=== PATIENT | male | born 1975 | race Hispanic/Latino ===

== ENCOUNTER 2017-11-12 10:20 | Emergency (ER) | payer BC ==
[2017-11-12 10:20] VITALS: BMI 24.3
[2017-11-12 10:55] VITALS: RESP 18; TEMP 98.1
--- NOTE | 2017-11-12 10:58 | ED PDOC ---
Arrival/HPI - General Chief Complaint: Groin Pain Time Seen by Provider: 11/12/17 10:52 Historian: Patient - History of Present Illness Narrative History of Present Illness (Text): 11/12/17 10:52 This 42 yo male with pmh diverticulitis, renal stone, IBS, anxiety, presents to this ED c/o cramping pain on his pubis, and proximal penis x END STAPLER. Patient stated pain started after masturbating. Denies sob, dysuria, hematuria, n/v, recta bleeding or abnormal gait. Patient denies other complains Father is at bedside Time/Duration: Other (see hpi) Context: Home Past Medical History - Provider Review Nursing Documentation Reviewed: Yes - Infectious Disease Hx of Infectious Diseases: None - Tetanus Immunization Tetanus Immunization: Unknown - Renal Hx Kidney Stones: Yes - Musculoskeletal/Rheumatological Hx Falls: No Hx Fractures: Yes (multiple nose fx's as a teenager) Other/Comment: right 5th finger fx, stitches to right hand cut while washing dishes - Gastrointestinal Hx Colitis: No Hx Crohn's Disease: No Hx Diverticulitis: Yes Hx Irritable Bowel: Yes (dirrhea and constipation) - Psychiatric Hx Anxiety: Yes Hx Substance Use: No (occasional pot) - Surgical History Other/Comment: Hernia repair umbilical with mesh - Anesthesia Hx Anesthesia: Yes Hx Anesthesia Reactions: No Hx Malignant Hyperthermia: No Family/Social History - Physician Review Nursing Documentation Reviewed: Yes Family/Social History: Other (noncontributory) Smoking Status: Light Smoker < 10 Cigarettes Daily Hx Alcohol Use: No (once a month) Hx Substance Use: No (occasional pot) Allergies/Home Meds Allergies/Adverse Reactions: Allergies No Known Allergies Allergy (Verified 06/26/15 11:32) Review of Systems - Review of Systems Constitutional: Normal. absent: Fatigue, Weight Change, Fevers Eyes: Normal ENT: Normal Respiratory: Normal. absent: SOB, Cough Cardiovascular: Normal. absent: Chest Pain, Palpitations Gastrointestinal: Normal. absent: Abdominal Pain, Nausea, Vomiting Genitourinary Male: Other (see hpi) Musculoskeletal: Normal Skin: Normal. absent: Rash Neurological: Normal. absent: Headache, Dizziness Endocrine: Normal Hemo/Lymphatic: Normal Psychiatric: Normal Physical Exam Vital Signs Temp Pulse Resp BP Pulse Ox 11/12/17 10:20 98.1 F 81 18 150/87 100 Temperature: Afebrile Blood Pressure: Normal Pulse: Regular Respiratory Rate: Normal Appearance: Positive for: Well-Appearing, Non-Toxic, Comfortable Pain Distress: None Mental Status: Positive for: Alert and Oriented X 3 - Systems Exam Head: Present: Atraumatic, Normocephalic Pupils: Present: PERRL Extroacular Muscles: Present: EOMI Conjunctiva: Present: Normal Mouth: Present: Moist Mucous Membranes Neck: Present: Normal Range of Motion Respiratory/Chest: Present: Clear to Auscultation, Good Air Exchange. No: Respiratory Distress, Accessory Muscle Use Cardiovascular: Present: Regular Rate and Rhythm, Normal S1, S2. No: Murmurs Abdomen: Present: Normal Bowel Sounds. No: Tenderness, Distention, Peritoneal Signs Genitourinary Male: Present: Normal External Genitalia, Circumcised Penis, Other (No testicular tenderness, swelling erythema, or groin tenderness. No rash). No: Lesions, Penile Discharge, Testicle Tenderness, Penile Swelling, Masses, Erythema, Hernias, Testicle Swelling Back: Present: Normal Inspection. No: CVA Tenderness Upper Extremity: Present: Normal Inspection. No: Cyanosis, Edema Lower Extremity: Present: Normal Inspection. No: Edema Neurological: Present: GCS=15, CN II-XII Intact, Speech Normal Skin: Present: Warm, Dry, Normal Color. No: Rashes Psychiatric: Present: Alert, Oriented x 3, Anxious. No: Depressed Mood, Suicidal Ideation, Homicidal Ideation, Delusional, Hallucinations, Intoxicated Medical Decision Making ED Course and Treatment: 11/12/17 12:19 I reviewed labs, ct scan result, UA with patient. Tests were unremarkable. Patient is concern about side effect from Klonopin. I recommended patient to follow up urologist in 1-2 days. I ordered Benadryl IVP due to pt concern of Klonopin reaction. Re-evaluation. Patient feels better. Discussed results and plan with patient who expresses understanding. All questions answered and there is agreement with the plan to discharge home with instructions. Patient stable for discharge. Return if symptoms persist or worsen. Re-evaluation Time: 12:21 Reassessment Condition: Re-examined, Improved - Lab Interpretations Lab Results: 11/12/17 11:15 11/12/17 11:15 Lab Results 11/12/17 11:15: Sodium 145, Potassium 4.0, Chloride 107, Carbon Dioxide 25, Anion Gap 17, BUN 15, Creatinine 0.9, Est GFR ( Amer) > 60, Est GFR (Non- Af Amer) > 60, Random Glucose 94, Calcium 10.2, Total Bilirubin 2.2 H, AST 21, ALT 38, Alkaline Phosphatase 83, Total Protein 7.1, Albumin 4.5, Globulin 2.5, Albumin/Globulin Ratio 1.8 11/12/17 11:15: Urine Color Colorless, Urine Appearance Clear, Urine pH 6.5, Ur Specific [place] <= 1.005, Urine Protein Negative, Urine Glucose (UA) Negative, Urine Ketones Negative, Urine Blood Negative, Urine Nitrate Negative, Urine Bilirubin Negative, Urine Urobilinogen 0.2, Ur Leukocyte Esterase Negative 11/12/17 11:15: WBC 8.1, RBC 5.05, Hgb 15.7, Hct 45.6, MCV 90.3, MCH 31.1, MCHC 34.4, RDW 12.4, Plt Count 229, MPV 10.4, Gran % 69.2 H, Lymph % (Auto) 24.4, [place] % (Auto) 5.7, Eos % (Auto) 0.6 L, Baso % (Auto) 0.1, Gran # 5.58, Lymph # ( Auto) 2.0, [place] # (Auto) 0.5, Eos # (Auto) 0.1, Baso # (Auto) 0.01 I have reviewed the lab results: Yes Interpretation: No clinic. lab abnormalty - RAD Interpretation Narrative RAD Interpretations (Text): 11/12/17 12:10 PROCEDURE: CT Abdomen and Pelvis without intravenous contrast HISTORY: left flank/pelvic pain COMPARISON: None. TECHNIQUE: Without contrast. Contrast Dose: Radiation dose: Total exam DLP = 318 mGy-cm. This CT exam was performed using one or more of the following dose reduction techniques: Automated exposure control, adjustment of the mA and/or kV according to patient size, and/or use of iterative reconstruction technique. FINDINGS: LOWER THORAX: Unremarkable. LIVER: Unremarkable. No gross lesion or ductal dilatation. GALLBLADDER AND BILE DUCTS: Unremarkable. PANCREAS: Unremarkable. No gross lesion or ductal dilatation. SPLEEN: Unremarkable. ADRENALS: Unremarkable. No mass. KIDNEYS AND URETERS: Unremarkable. No hydronephrosis. No solid mass. VASCULATURE: Unremarkable. No aortic aneurysm. BOWEL: Unremarkable. No obstruction. No gross mural thickening. Mild diverticulosis of the sigmoid colon APPENDIX: Unremarkable. Normal appendix. PERITONEUM: Unremarkable. No free fluid. No free air. LYMPH NODES: Unremarkable. No enlarged lymph nodes. BLADDER: Unremarkable. REPRODUCTIVE: Unremarkable. BONES: No acute fracture. OTHER FINDINGS: None. IMPRESSION: No acute findings Radiology Orders: 11/12/17 11:00 ABD & PELVIS W/O PO OR IV CONT [CT] Stat Disposition/Present on Arrival - Present on Arrival Any Indicators Present on Arrival: No History of DVT/PE: No History of Uncontrolled Diabetes: No Urinary Catheter: No History of Decub. Ulcer: No History Surgical Site Infection Following: None - Disposition Have Diagnosis and Disposition been Completed?: Yes Diagnosis: Cramping of left suprapubic region Disposition: HOME/ ROUTINE Disposition Time: 12:22 Patient Plan: Discharge Patient Problems: Current Active Problems Problem Status Onset Cramping of left suprapubic region Acute Condition: GOOD Discharge Instructions (ExitCare): Acute Pelvic Pain (DC) Additional Instructions: Call Dr. Gonzalez Urologist as scheduled by you. Take medication as instructed. Return to emergency if symptoms worsen. Review STD test with your doctor or urologist in 2-3 days. Prescriptions: Ibuprofen [Motrin] 400 mg PO Q8H PRN #20 tab PRN Reason: Pain, Severe (8-10) Referrals: Thiago Urrutia MD [Primary Care Provider] - Follow up with primary Herb Gonzalez MD [Staff Provider] - Follow up with primary Forms: [employer] (Greek), WORK NOTE
[2017-11-12] MEDS ORDERED: Iohexol 240 (50 ml) ONE (11:05)
[2017-11-12 11:31] LABS: BASO # 0.01 K/mm3 (0.0-2.0); BASO % 0.1 % (0.0-3.0); EOS # 0.1 (0.0-0.7); EOS % 0.6 % (1.5-5.0); GRAN # 5.58 (1.4-6.5); GRAN % 69.2 % (50.0-68.0); HEMOGLOBIN 15.7 g/dL (14.0-18.0); LYMPH % 24.4 % (22.0-35.0); MEAN CELL VOLUME 90.3 fl (80.0-105.0); MEAN CORPUSCULAR HEMOGLOBIN 31.1 pg (25.0-35.0); MEAN CORPUSCULAR HGB CONC 34.4 g/dl (31.0-37.0); MEAN PLATELET VOLUME 10.4 fl (7.0-11.0); MONO # 0.5 (0.1-0.6); MONO % 5.7 % (1.0-6.0); RBC 5.05 10^6/uL (3.5-6.1); RED CELL DISTRIBUTION WIDTH 12.4 % (11.5-14.5); WHITE BLOOD COUNT 8.1 10^3/ul (4.5-11.0)
[2017-11-12 11:32] LABS: PH,URINE 6.5 (4.7-8.0); URINE BILIRUBIN NEGATIVE (NEGATIVE); URINE BLOOD NEGATIVE (NEGATIVE); URINE GLUCOSE (UA) NEGATIVE (NEGATIVE); URINE LEUKOCYTE ESTERASE NEGATIVE Leu/uL (NEGATIVE); URINE NITRATE NEGATIVE (NEGATIVE); URINE PROTEIN NEGATIVE mg/dL (<30 mg/dL); URINE UROBILINOGEN 0.2 E.U./dL (<1 E.U./dL)
[2017-11-12 11:33] LABS: URINE APPEARANCE CLEAR (CLEAR); URINE COLOR COLORLESS (YELLOW)
[2017-11-12 11:40] LABS: ALB/GLOB RATIO 1.8 (1.1-1.8); ALBUMIN 4.5 g/dL (3.0-4.8); ALT/SGPT 38 U/L (7-56); AST/SGOT 21 U/L (17-59); BLOOD UREA NITROGEN 15 mg/dL (7-21); CALCIUM 10.2 mg/dL (8.4-10.5); GFR AFRICAN-AMERICAN > 60; GFR NON-AFRICAN AMERICAN > 60
--- NOTE | 2017-11-12 11:58 | CT ---
PROCEDURE: CT Abdomen and Pelvis without intravenous contrast HISTORY: left flank/pelvic pain COMPARISON: None. TECHNIQUE: Without contrast. Contrast Dose: Radiation dose: Total exam DLP = 318 mGy-cm. This CT exam was performed using one or more of the following dose reduction techniques: Automated exposure control, adjustment of the mA and/or kV according to patient size, and/or use of iterative reconstruction technique. FINDINGS: LOWER THORAX: Unremarkable. LIVER: Unremarkable. No gross lesion or ductal dilatation. GALLBLADDER AND BILE DUCTS: Unremarkable. PANCREAS: Unremarkable. No gross lesion or ductal dilatation. SPLEEN: Unremarkable. ADRENALS: Unremarkable. No mass. KIDNEYS AND URETERS: Unremarkable. No hydronephrosis. No solid mass. VASCULATURE: Unremarkable. No aortic aneurysm. BOWEL: Unremarkable. No obstruction. No gross mural thickening. Mild diverticulosis of the sigmoid colon APPENDIX: Unremarkable. Normal appendix. PERITONEUM: Unremarkable. No free fluid. No free air. LYMPH NODES: Unremarkable. No enlarged lymph nodes. BLADDER: Unremarkable. REPRODUCTIVE: Unremarkable. BONES: No acute fracture. OTHER FINDINGS: None. IMPRESSION: No acute findings
[2017-11-12] MEDS ORDERED: DiphenhydrAMINE 50 mg/ml Inj IVP STA (12:18)
[2017-11-12 12:19] VITALS: BP 126/78; PULSE 79; O2SAT 97
== END 2017-11-12 12:38 | disposition home or self-care (01) ==
LOC: ED 10:20
DX: R10.32 Left lower quadrant pain (principal); F17.210 Nicotine dependence, cigarettes, uncomplicated
CPT/HCPCS: 74176; 80053; 81003; 85025; 87491; 87591; 96374; 99283; J1200; Q9966

== ENCOUNTER 2018-09-08 22:45 | Emergency (ER) | payer BC ==
[2018-09-08 23:19] VITALS: BMI 23.6
--- NOTE | 2018-09-08 23:27 | ED PDOC ---
Arrival/HPI <Miles Fatima - Last Filed: 09/09/18 00:50> - General Historian: Patient - History of Present Illness Narrative History of Present Illness (Text): 09/08/18 23:53 43 y/o with PMHx of diverticulitis, nephrolithiasis, IBS, anxiety presents to ED with complaints of chest palpitations, chest tightness, "eye heaviness" with associated diaphoresis, without chest pain, radiation to arm/jaw for the past 1 hour, without alleviation or aggravation with anything in particular. Pt reports he hasn't had these symptoms before. He reports he feels very anxious currently and is shaking. He hasn't taken his klonopin this am that he takes regularly. He reports smoking "2 hits" of marijuana around 12 pm today. He reports he smokes marijuana regularly, and didn't smoke any new type today. He was started on rifaximin by his personal health coach at [facility] today d/t "overgrowth of colonic bacteria." He took morning and afternoon dosages today. He denies any other drugs or alcohol use today. He denies fevers, chills, headache, dizziness, chest pain, shortness of breath, nausea, vomiting, constipation, diarrhea, dysuria. Time/Duration: Prior to Arrival Symptom Onset: Gradual Symptom Course: Unchanged Quality: Tightness Severity Level: Mild Activities at Onset: Rest <Samantha Medina - Last Filed: 09/09/18 04:28> - General Chief Complaint: Dizziness/Lightheaded Past Medical History - Provider Review Nursing Documentation Reviewed: Yes - Infectious Disease Hx of Infectious Diseases: None - Tetanus Immunization Tetanus Immunization: Unknown - Renal Hx Kidney Stones: Yes - Musculoskeletal/Rheumatological Hx Falls: No Hx Fractures: Yes (multiple nose fx's as a teenager) Other/Comment: right 5th finger fx, stitches to right hand cut while washing dishes - Gastrointestinal Hx Colitis: No Hx Crohn's Disease: No Hx Diverticulitis: Yes Hx Irritable Bowel: Yes (diarrhea and constipation) - Psychiatric Hx Anxiety: Yes Hx Substance Use: No (occasional pot) - Surgical History Other/Comment: Hernia repair umbilical with mesh - Anesthesia Hx Anesthesia: Yes Hx Anesthesia Reactions: No Hx Malignant Hyperthermia: No <Samantha Medina - Last Filed: 09/09/18 04:28> Family/Social History - Physician Review Nursing Documentation Reviewed: Yes Family/Social History: Hypertension, CAD/[place] Smoking Status: Light Smoker < 10 Cigarettes Daily Hx Alcohol Use: No (once a month) Hx Substance Use: Yes (occasional marijuana) <Samantha Medina - Last Filed: 09/09/18 04:28> Allergies/Home Meds <Miles Fatima - Last Filed: 09/09/18 00:50> <Samantha Medina - Last Filed: 09/09/18 04:28> Allergies/Adverse Reactions: Allergies No Known Allergies Allergy (Verified 09/08/18 23:21) Review of Systems - Review of Systems Constitutional: Other (sweating) Eyes: Other ("eye heaviness") ENT: Normal Respiratory: Normal. absent: SOB Cardiovascular: Palpitations Gastrointestinal: Normal Genitourinary Male: Normal Musculoskeletal: Normal Skin: Normal Neurological: Normal Endocrine: Diaphoresis Hemo/Lymphatic: Normal Psychiatric: Anxiety <Samantha Medina - Last Filed: 09/09/18 04:28> Physical Exam Vital Signs Reviewed: Yes Temperature: Afebrile Blood Pressure: Normal Pulse: Regular Respiratory Rate: Normal Appearance: Positive for: Well-Appearing, Comfortable, Other (anxious) Pain Distress: None Mental Status: Positive for: Alert and Oriented X 3 - Systems Exam Head: Present: Atraumatic, Normocephalic Pupils: Present: PERRL Extroacular Muscles: Present: EOMI Conjunctiva: Present: Normal Mouth: Present: Moist Mucous Membranes Neck: Present: Normal Range of Motion Respiratory/Chest: Present: Clear to Auscultation, Good Air Exchange. No: Respiratory Distress, Accessory Muscle Use Cardiovascular: Present: Regular Rate and Rhythm, Normal S1, S2. No: Murmurs Abdomen: No: Tenderness, Distention, Peritoneal Signs Back: Present: Normal Inspection Upper Extremity: Present: Normal Inspection. No: Cyanosis, Edema Lower Extremity: Present: Normal Inspection. No: Edema Neurological: Present: GCS=15, CN II-XII Intact, Speech Normal Skin: Present: Warm, Normal Color, Diaphoretic. No: Rashes Psychiatric: Present: Alert, Oriented x 3, Anxious <Samantha Medina - Last Filed: 09/09/18 04:28> Medical Decision Making ED Course and Treatment: Impression: Pt seen and evaluated with medical office receptionist. Aware and agree with HPI, clinical findings, plan, and management. Pt, whose past medical history includes diverticulitis, nephrolithiasis, IBS, and anxiety, presented for palpitations, chest pain, and diaphoresis tonight. Plan: -- Labs, troponin -- Urinalysis, urine drug screen -- Klonopin -- Reassess and disposition - Lab Interpretations Lab Results: 09/09/18 00:13 09/09/18 00:13 Lab Results 09/09/18 00:13: Sodium 141, Potassium 3.6, Chloride 107, Carbon Dioxide 24, Anion Gap 13, BUN 18, Creatinine 0.8, Est GFR ( Amer) > 60, Est GFR (Non- Af Amer) > 60, Random Glucose 136 H, Calcium 9.6, Phosphorus 3.2, Magnesium 1.9, Total Bilirubin 2.2 H, AST 25, ALT 30, Alkaline Phosphatase 79, Troponin I < 0.01, Total Protein 7.3, Albumin 4.6, Globulin 2.7, Albumin/Globulin Ratio 1.8 09/09/18 00:13: WBC 8.2, RBC 5.03, Hgb 15.5, Hct 44.4, MCV 88.3, MCH 30.8, MCHC 34.9, RDW 12.3, Plt Count 232, MPV 10.1, Gran % 62.4, Lymph % (Auto) 27.8, [place] % (Auto) 7.4 H, Eos % (Auto) 2.2, Baso % (Auto) 0.2, Gran # 5.11, Lymph # (Auto) 2.3, [place] # (Auto) 0.6, Eos # (Auto) 0.2, Baso # (Auto) 0.02 - RAD Interpretation Radiology Orders: 09/08/18 23:48 CHEST PORTABLE [RAD] Stat - Medication Orders Current Medication Orders: Discontinued Medications Clonazepam (Klonopin) 1 mg PO STAT STA; Protocol Stop: 09/08/18 23:58 Last Admin: 09/09/18 00:23 Dose: 1 mg <Miles Fatima - Last Filed: 09/09/18 00:50> ED Course and Treatment: 09/09/18 00:08 Impression: 43 y/o M with PMHx of anxiety, IBS, diverticulitis, nephrolithiasis presents to ED with complaints of chest palpitations, chest heaviness, anxiety with associated diaphoresis for the past 1 hour. Differential diagnosis includes but is not limited: anxiety induced chest palpitations acute [place] Plan: Labs EKG Chest xray U/A LIZ Sanchez Reassess & dispo Progress Notes: 09/09/18 04:13 Pt reassessed. Significant improvement in symptoms. No long anxious. Pt instructed to visit with personal health coach to discuss xifaxin medication side effects. - Lab Interpretations I have reviewed the lab results: Yes - RAD Interpretation Narrative RAD Interpretations (Text): 09/09/18 01:00 Chest xray: No acute findings Carding Supervisor: ED Physician - EKG Interpretation EKG Interpretation (Text): 09/08/18 23:26 Normal sinus rhythm Vent rate: 81 bpm QTc: 422ms Type: 12 lead EKG <Samantha Medina - Last Filed: 09/09/18 04:28> - PA / ELECTRONICS REPAIR TECHNICIAN / Resident Statement / has reviewed & agrees with the documentation as recorded. / has examined the patient and agrees with the treatment plan. <Samantha Medina - Last Filed: 09/09/18 04:28> Disposition/Present on Arrival <Miles Fatima - Last Filed: 09/09/18 00:50> - Present on Arrival Any Indicators Present on Arrival: No History of DVT/PE: No History of Uncontrolled Diabetes: No Urinary Catheter: No History of Decub. Ulcer: No History Surgical Site Infection Following: None - Disposition Have Diagnosis and Disposition been Completed?: Yes Disposition Time: 04:28 Patient Plan: Discharge <Samantha Medina - Last Filed: 09/09/18 04:28> - Disposition Diagnosis: Anxiety, Heart palpitations Disposition: HOME/ ROUTINE Condition: GOOD Additional Instructions: Please follow-up with your personal health coach within the next week. Please discuss the reaction you had recently had with you xifaxan medication. Please follow-up with your primary care doctor within the next week. Please discuss your visit to the ED with your doctor Please continue taking your current psychiatric medications as directed If your symptoms return, please visit the nearest emergency room Forms: [employer] (Serbian)
[2018-09-09 00:30] LABS: BASO # 0.02 K/mm3 (0.0-2.0); BASO % 0.2 % (0.0-3.0); EOS # 0.2 (0.0-0.7); EOS % 2.2 % (1.5-5.0); GRAN # 5.11 (1.4-6.5); GRAN % 62.4 % (50.0-68.0); HEMOGLOBIN 15.5 g/dL (14.0-18.0); LYMPH # 2.3 (1.2-3.4); LYMPH % 27.8 % (22.0-35.0); MEAN CELL VOLUME 88.3 fl (80.0-105.0); MEAN CORPUSCULAR HEMOGLOBIN 30.8 pg (25.0-35.0); MEAN CORPUSCULAR HGB CONC 34.9 g/dl (31.0-37.0); MEAN PLATELET VOLUME 10.1 fl (7.0-11.0); MONO # 0.6 (0.1-0.6); MONO % 7.4 % (1.0-6.0); RBC 5.03 10^6/uL (3.5-6.1); RED CELL DISTRIBUTION WIDTH 12.3 % (11.5-14.5); WHITE BLOOD COUNT 8.2 10^3/uL (4.5-11.0)
[2018-09-09 00:38] LABS: ALB/GLOB RATIO 1.8 (1.1-1.8); ALBUMIN 4.6 g/dL (3.0-4.8); ALT/SGPT 30 U/L (7-56); AST/SGOT 25 U/L (17-59); BLOOD UREA NITROGEN 18 mg/dL (7-21); CALCIUM 9.6 mg/dL (8.4-10.5); GFR NON-AFRICAN AMERICAN > 60
[2018-09-09 00:49] LABS: TROPONIN I < 0.01 ng/mL
[2018-09-09 01:16] VITALS: TEMP 98.1
[2018-09-09 03:49] LABS: URINE BILIRUBIN NEGATIVE (NEGATIVE); URINE BLOOD NEGATIVE (NEGATIVE); URINE GLUCOSE (UA) NEGATIVE (NEGATIVE); URINE LEUKOCYTE ESTERASE NEGATIVE Leu/uL (NEGATIVE); URINE PROTEIN NEGATIVE mg/dL (<30 mg/dL); URINE UROBILINOGEN 0.2 E.U./dL (<1 E.U./dL)
[2018-09-09 03:51] LABS: URINE APPEARANCE CLEAR (CLEAR); URINE COLOR STRAW (YELLOW)
[2018-09-09 04:27] VITALS: BP 119/81; PULSE 85; RESP 17; O2SAT 96
[2018-09-09 04:27] LABS: BARBITURATES, UR NEGATIVE (NEGATIVE); BENZODIAZEPINES, UR NEGATIVE (NEGATIVE); OPIATES, UR NEGATIVE (NEGATIVE); PHENCYCLIDINE, UR NEGATIVE (NEGATIVE)
--- NOTE | 2018-09-09 09:52 | RAD ---
Date of service: 09/08/2018 HISTORY: palpitations COMPARISON: No prior. FINDINGS: LUNGS: No active pulmonary disease. PLEURA: No significant pleural effusion identified, no pneumothorax apparent. CARDIOVASCULAR: No aortic atherosclerotic calcification present. Normal cardiac size. No pulmonary vascular congestion. OSSEOUS STRUCTURES: No significant abnormalities. VISUALIZED UPPER ABDOMEN: Normal. OTHER FINDINGS: None. IMPRESSION: No active disease.
--- NOTE | 2018-09-09 12:20 | CARD ---
APPROVED REPORT Date of service: 09/08/2018 EKG Measurement Heart [id number] <Conclusion> Normal sinus rhythm Normal ECG
== END 2018-09-09 04:27 | disposition home or self-care (01) ==
LOC: ED 22:45
DX: F41.9 Anxiety disorder, unspecified (principal); R00.2 Palpitations; F17.210 Nicotine dependence, cigarettes, uncomplicated
CPT/HCPCS: 71045; 80053; 81003; 83735; 84100; 84484; 85025; 93005; 99285; G0480

== ENCOUNTER 2018-10-03 08:34 | Outpatient (CLI) | payer BC | END 2018-10-03 08:35 | disposition home or self-care (01) | LOC: RAD 08:34 ==

== ENCOUNTER 2018-10-08 14:09 | Observation (INO) | payer BC ==
[2018-10-08 14:12] VITALS: BMI 22.8
--- NOTE | 2018-10-08 14:28 | ED PDOC ---
Arrival/HPI - General Chief Complaint: Chest Pain Time Seen by Provider: 10/08/18 14:16 Historian: Patient - History of Present Illness Narrative History of Present Illness (Text): 10/08/18 14:28 A 43 year old male, whose past medical history includes 2 hernia surgeries, tongue lesion, a nose surgery, depression, anxiety, gastritis, and acid reflux, presents to the emergency department complaining of chest tightness with assoc iated nausea since last night. Patient reports he was engaging in sexual intercourse last night when, at climax, he felt a sudden chest tightness, nausea, and shortness of breath that lasted for a few minutes. Patient states he woke up today with chest tightness and was concerned because of his anxiety. Patient admits he takes cialis for anxiety, cymbalta for depression, ambien, klonopin, and welchol for acid reflux. Patient notes he is currently experiencing chest tightness and nausea. Patient denies any fever, chills, diarrhea, vomiting, urinary symptoms, back pain, neck pain, headache, diz ziness, or any other complaints. PMD: Dr. Urrutia Time/Duration: Other (last night) Symptom Onset: Sudden Symptom Course: Unchanged Activities at Onset: Light Context: Home Past Medical History - Provider Review Nursing Documentation Reviewed: Yes - Infectious Disease Hx of Infectious Diseases: None - Tetanus Immunization Tetanus Immunization: Unknown - Renal Hx Kidney Stones: Yes - Musculoskeletal/Rheumatological Hx Falls: No Hx Fractures: Yes (multiple nose fx's as a teenager) Other/Comment: right 5th finger fx, stitches to right hand cut while washing dishes - Gastrointestinal Hx Colitis: No Hx Crohn's Disease: No Hx Diverticulitis: Yes Hx Irritable Bowel: Yes (diarrhea and constipation) - Psychiatric Hx Anxiety: Yes Hx Substance Use: Yes (occasional marijuana) - Surgical History Other/Comment: Hernia repair umbilical with mesh - Anesthesia Hx Anesthesia: Yes Hx Anesthesia Reactions: No Hx Malignant Hyperthermia: No Family/Social History - Physician Review Nursing Documentation Reviewed: Yes Family/Social History: No Known Family HX Smoking Status: Light Smoker < 10 Cigarettes Daily Hx Alcohol Use: No (once a month) Hx Substance Use: Yes (occasional marijuana) Allergies/Home Meds Allergies/Adverse Reactions: Allergies No Known Allergies Allergy (Verified 09/08/18 23:21) Home Medications: Home Meds Medication Instructions Recorded Confirmed Colesevelam HCl [Welchol] 625 mg PO BID 10/08/18 10/09/18 DULoxetine [Cymbalta] 1 tab PO DAILY 10/08/18 10/09/18 Ranitidine HCl [Zantac] 150 mg PO BID 10/08/18 10/09/18 Saccharomyces Boulardi [Florastor] 250 mg PO DAILY 10/08/18 10/09/18 Tadalafil [Cialis] 10 mg PO DAILY 10/08/18 10/08/18 Zolpidem [Ambien] 6.25 mg PO HS 10/08/18 10/09/18 clonazePAM [Klonopin] 0.5 mg PO HS PRN 10/08/18 10/09/18 Review of Systems - Physician Review All systems were reviewed & negative as marked: Yes - Review of Systems Constitutional: absent: Fevers, Other (chills) Respiratory: SOB Cardiovascular: Chest Pain (chest tightness) Gastrointestinal: Nausea. absent: Diarrhea, Vomiting Genitourinary Male: absent: Urinary Output Changes Musculoskeletal: absent: Back Pain, Neck Pain Neurological: absent: Headache, Dizziness Physical Exam Vital Signs Reviewed: Yes Vital Signs Temp Pulse Resp BP Pulse Ox 10/08/18 14:09 97.8 F 91 H 18 134/83 97 Temperature: Afebrile Blood Pressure: Normal Pulse: Tachycardic Respiratory Rate: Normal Appearance: Positive for: Well-Appearing, Non-Toxic Mental Status: Positive for: Alert and Oriented X 3 - Systems Exam Head: Present: Atraumatic, Normocephalic Pupils: Present: PERRL Extroacular Muscles: Present: EOMI Conjunctiva: Present: Normal Respiratory/Chest: Present: Clear to Auscultation, Good Air Exchange. No: Respiratory Distress, Accessory Muscle Use Cardiovascular: Present: Regular Rate and Rhythm, Normal S1, S2. No: Murmurs Abdomen: No: Tenderness, Distention, Peritoneal Signs Back: Present: Normal Inspection Upper Extremity: Present: Normal Inspection. No: Cyanosis, Edema Lower Extremity: Present: Normal Inspection. No: Edema Neurological: Present: GCS=15, CN II-XII Intact, Speech Normal Skin: Present: Warm, Dry, Normal Color. No: Rashes Psychiatric: Present: Alert, Oriented x 3, Normal Insight, Normal Concentration Medical Decision Making ED Course and Treatment: 10/08/18 14:32 Impression: 43 year old male presents to the emergency department complaining of chest tightness with associated nausea. Differential Diagnosis included but are not limited to: rule out CO Plan: -- EKG -- Labs -- CBC -- Chest X-ray -- Aspirin -- Urinalysis -- Reassess and disposition Prior Visits: Notes and results from previous visits were reviewed. Progress Notes: 10/08/18 14:34 EKG: Ordered, reviewed, and independently interpreted the EKG. Rate : 83 BPM Rhythm : NSR Interpretation : Normal intervals. 10/08/18 17:15 Patient will be admitted, and is aware and agrees with plan. accepts patient into service and requests for cardiology consult. 10/08/18 14:27 Chest X-ray reviewed by radiologist, IMPRESSION: No active disease. - Scribe Statement The provider has reviewed the documentation as recorded by the Yazanibmaik Christiansen All medical record entries made by the Scribe were at my direction and personally dictated by me. I have reviewed the chart and agree that the record accurately reflects my personal performance of the history, physical exam, medical decision making, and the department course for this patient. I have also personally directed, reviewed, and agree with the discharge instructions and disposition. Disposition/Present on Arrival - Present on Arrival Any Indicators Present on Arrival: No History of DVT/PE: No History of Uncontrolled Diabetes: No Urinary Catheter: No History of Decub. Ulcer: No History Surgical Site Infection Following: None - Disposition Have Diagnosis and Disposition been Completed?: Yes Diagnosis: Chest pain, Medication adverse effect Disposition: HOSPITALIZED Disposition Time: 17:19 Patient Plan: Observation Condition: GOOD
[2018-10-08 15:02] LABS: BASO # 0.01 K/mm3 (0.0-2.0); BASO % 0.1 % (0.0-3.0); EOS # 0.1 (0.0-0.7); EOS % 0.8 % (1.5-5.0); HEMOGLOBIN 15.6 g/dL (14.0-18.0); LYMPH # 2.2 (1.2-3.4); LYMPH % 30.8 % (22.0-35.0); MEAN CELL VOLUME 91.7 fl (80.0-105.0); MEAN CORPUSCULAR HGB CONC 33.8 g/dl (31.0-37.0); MEAN PLATELET VOLUME 9.6 fl (7.0-11.0); MONO # 0.4 (0.1-0.6); MONO % 5.4 % (1.0-6.0); RBC 5.03 10^6/uL (3.5-6.1); RED CELL DISTRIBUTION WIDTH 12.4 % (11.5-14.5); WHITE BLOOD COUNT 7.1 10^3/uL (4.5-11.0)
[2018-10-08 15:32] LABS: ALB/GLOB RATIO 1.6 (1.1-1.8); ALBUMIN 4.6 g/dL (3.0-4.8); ALT/SGPT 35 U/L (7-56); AST/SGOT 34 U/L (17-59); BLOOD UREA NITROGEN 20 mg/dL (7-21); CALCIUM 9.4 mg/dL (8.4-10.5); GFR NON-AFRICAN AMERICAN > 60
[2018-10-08 15:35] LABS: TROPONIN I < 0.01 ng/mL
[2018-10-08 16:34] LABS: PH,URINE 6.5 (4.7-8.0); URINE BILIRUBIN NEGATIVE (NEGATIVE); URINE BLOOD NEGATIVE (NEGATIVE); URINE GLUCOSE (UA) NEGATIVE (NEGATIVE); URINE LEUKOCYTE ESTERASE NEGATIVE Leu/uL (NEGATIVE); URINE PROTEIN NEGATIVE mg/dL (<30 mg/dL); URINE UROBILINOGEN 0.2 E.U./dL (<1 E.U./dL)
[2018-10-08 16:40] LABS: URINE APPEARANCE CLEAR (CLEAR); URINE COLOR YELLOW (YELLOW)
[2018-10-08] MEDS ORDERED: Sodium Chloride 0.9% 1,000 ML IV STA (17:13)
--- NOTE | 2018-10-08 18:02 | RAD ---
Date of service: 10/08/2018 HISTORY: chest tightness COMPARISON: Comparison is made to the previous study dated 09/08/2018 FINDINGS: LUNGS: No active pulmonary disease. PLEURA: No significant pleural effusion identified, no pneumothorax apparent. CARDIOVASCULAR: No aortic atherosclerotic calcification present. Normal cardiac size. No pulmonary vascular congestion. OSSEOUS STRUCTURES: No significant abnormalities. VISUALIZED UPPER ABDOMEN: Normal. OTHER FINDINGS: None. IMPRESSION: No active disease.
[2018-10-08 19:38] VITALS: RESP 20
[2018-10-08 20:06] VITALS: O2SAT 98
[2018-10-08] MEDS ORDERED: SACCHAROMYCES BOULARDII 250 MG PO SCH ×2 (21:09→21:31)
[2018-10-08] MEDS: RANITIDINE 150 MG PO SCH (21:48)
[2018-10-08] MEDS ORDERED: Pneumococcal 23-Valent Vaccine IM ONE (22:35)
[2018-10-08] MEDS ORDERED: Influenza Vaccine 60 mcg/0.5 mL SYR (4YR UP) IM ONE (22:35)
[2018-10-09 05:56] VITALS: TEMP 98.5
--- NOTE | 2018-10-09 07:02 | CP.PCM.HP ---
<Jenny Bernstein - Last Filed: 10/09/18 10:25> History of Present Illness - History of Present Illness History of Present Illness: 43yo male PMHx diverticulitis, nephrolithiasis, IBS, depression, anxiety, PUD, GERD, multiple nasal bone fractures presents to the ER complaining of chest tightness and nausea the night of admission. He reports she was engaging in sexual intercourse and at climax he felt a sudden chest tightness and was short of breath for some minutes. He denied radiation of the chest pain down his left arm or up his jaw and denied any diaphoresis/palpitations at the time of event. He reports he felt like it was a muscle spasm. Patient has anxiety for which he took Cialis prior to intercourse and was concerned it was related to his chest pain. he denied other complaints of fever, chills, headache, dizziness, cough, abd pain, nausea, vomiting, bowel/bladder complaints, pain/swelling in his legs bilaterally. 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 Urrutia Present on Admission - Present on Admission Any Indicators Present on Admission: No Review of Systems - Review of Systems All systems: reviewed and no additional remarkable complaints except Review of Systems: as per HPI Past Patient History - Infectious Disease Hx of Infectious Diseases: None - Tetanus Immunizations Tetanus Immunization: Unknown - Past Medical History & Family History Past Medical History?: Yes - Past Social History Smoking Status: Never Smoked - CARDIAC Hx Cardiac Disorders: No - PULMONARY Hx Respiratory Disorders: No - NEUROLOGICAL Hx Neurological Disorder: No - HEENT Hx HEENT Problems: No - RENAL Hx Chronic Kidney Disease: Yes Hx Kidney Stones: Yes - ENDOCRINE/METABOLIC Hx Endocrine Disorders: No - HEMATOLOGICAL/ONCOLOGICAL Hx Blood Disorders: No - INTEGUMENTARY Hx Dermatological Problems: No - MUSCULOSKELETAL/RHEUMATOLOGICAL Hx Falls: No - GASTROINTESTINAL Hx Gastrointestinal Disorders: Yes Hx Crohn's Disease: No Hx Diverticulitis: Yes Hx Gastroesophageal Reflux: Yes Other/Comment: ibs, gastritis, diarrhea, constipation, pt is being treated at [facility] for ibs "good bacteria is overgrown" pt stated - GENITOURINARY/GYNECOLOGICAL Hx Genitourinary Disorders: No - PSYCHIATRIC Hx Substance Use: Yes (occasional marijuana) - SURGICAL HISTORY Hx Surgeries: Yes Other/Comment: Hernia repair umbilical with mesh. left inguinal hernia sx, benign tongue lesion removed - ANESTHESIA Hx Anesthesia: Yes Hx Anesthesia Reactions: No Hx Malignant Hyperthermia: No Meds Allergies/Adverse Reactions: Allergies Allergy/AdvReac Type Severity Reaction Status Date / Time No Known Allergies Allergy Verified 09/08/18 23:21 Physical Exam - Constitutional Appears: Non-toxic, No Acute Distress - Head Exam Head Exam: ATRAUMATIC, NORMAL INSPECTION, NORMOCEPHALIC - Eye Exam Eye Exam: EOMI, Normal appearance, PERRL. absent: Conjunctival injection, Scleral icterus Pupil Exam: NORMAL ACCOMODATION, PERRL - ENT Exam ENT Exam: Mucous Membranes Moist - Neck Exam Neck exam: Positive for: Full Rom, Normal Inspection. Negative for: Lymphadenopathy - Respiratory Exam Respiratory Exam: Clear to Auscultation Bilateral, NORMAL BREATHING PATTERN. absent: Accessory Muscle Use, Rales, Rhonchi, Wheezes, Respiratory Distress - Cardiovascular Exam Cardiovascular Exam: REGULAR RHYTHM, RRR, +S1, +S2 - GI/Abdominal Exam GI & Abdominal Exam: Normal Bowel Sounds, Soft. absent: Firm, Guarding, Rigid, Tenderness - Extremities Exam Extremities exam: Positive for: normal capillary refill, normal inspection, pedal pulses present. Negative for: pedal edema - Back Exam Back exam: NORMAL INSPECTION. absent: rash noted - Neurological Exam Neurological exam: Alert, CN II-XII Intact, Oriented x3 - Psychiatric Exam Psychiatric exam: Anxious - Skin Skin Exam: Dry, Intact, Normal Color, Warm Results - Vital Signs Recent Vital Signs: Last Vital Signs Temp 98.5 F 10/09/18 05:51 Pulse 59 L 10/09/18 05:51 Resp 20 10/09/18 05:51 BP 112/61 10/09/18 05:51 Pulse Ox 98 10/09/18 05:51 - Labs Result Diagrams: 10/08/18 14:34 10/08/18 14:34 Labs: Laboratory Results - last 24 hr 10/08/18 10/08/18 10/08/18 14:34 14:34 14:34 WBC 7.1 RBC 5.03 Hgb 15.6 Hct 46.1 MCV 91.7 D MCH 31.0 MCHC 33.8 RDW 12.4 Plt Count 243 MPV 9.6 Neut % (Auto) 62.9 Lymph % (Auto) 30.8 [place] % (Auto) 5.4 Eos % (Auto) 0.8 L Baso % (Auto) 0.1 Lymph # (Auto) 2.2 [place] # (Auto) 0.4 Eos # (Auto) 0.1 Baso # (Auto) 0.01 Absolute Neuts (auto) 4.44 Sodium 139 Potassium 4.1 Chloride 103 Carbon Dioxide 27 Anion Gap 12 BUN 20 Creatinine 0.9 Est GFR ( Amer) > 60 Est GFR (Non-Af Amer) > 60 Random Glucose 88 Calcium 9.4 Magnesium 2.1 Total Bilirubin 2.5 H AST 34 ALT 35 Alkaline Phosphatase 86 Lactate Dehydrogenase 360 Total Creatine Kinase 148 Troponin I < 0.01 Total Protein 7.5 Albumin 4.6 Globulin 2.9 Albumin/Globulin Ratio 1.6 Urine Color Yellow Urine Appearance Clear Urine pH 6.5 Ur Specific [place] 1.010 Urine Protein Negative Urine Glucose (UA) Negative Urine Ketones 15 H Urine Blood Negative Urine Nitrate Negative Urine Bilirubin Negative Urine Urobilinogen 0.2 Ur Leukocyte Esterase Negative 10/09/18 05:00 WBC RBC Hgb Hct MCV MCH MCHC RDW Plt Count MPV Neut % (Auto) Lymph % (Auto) [place] % (Auto) Eos % (Auto) Baso % (Auto) Lymph # (Auto) [place] # (Auto) Eos # (Auto) Baso # (Auto) Absolute Neuts (auto) Sodium Potassium Chloride Carbon Dioxide Anion Gap BUN Creatinine Est GFR ( Amer) Est GFR (Non-Af Amer) Random Glucose Calcium Magnesium Total Bilirubin AST ALT Alkaline Phosphatase Lactate Dehydrogenase Total Creatine Kinase Troponin I < 0.01 Total Protein Albumin Globulin Albumin/Globulin Ratio Urine Color Urine Appearance Urine pH Ur Specific [place] Urine Protein Urine Glucose (UA) Urine Ketones Urine Blood Urine Nitrate Urine Bilirubin Urine Urobilinogen Ur Leukocyte Esterase Assessment & Plan - Assessment and Plan (Free Text) Assessment: 1. Chest pain r/o ACS- low suspicion for cardiac etiology 2. Anxiety 3. HLD 4. Depression 5. GERD 6. PUD 7. Insomnia Plan: Patient admitted to telemetry overnight for further management. Patient troponin was negative x 2 and EKG revealed NSR with HR 83bpm and no ST changes. Cardiology Dr. Vazquez on board. Patient had no acute events overnight and was comfortable this morning with no acute complaints of chest pain, palpitations, or dyspnea. Patient was restarted on home medications Klonopin for anxiety and Cymbalta for depression. He was continued on home Welchol for HLD and Zantac for his GERD. Patient was also continued on Florastor that he takes at home for IBS. He slept well overnight and was given home dose Ambien for insomnia. He tolerated his HHD and clinically improved since admission. Patient pending cardiology recommendations and likely will be discharged later today. Discussed with Dr. Claude Bernstein PGY3 <William Arce S - Last Filed: 10/09/18 12:18> Results - Vital Signs Recent Vital Signs: Last Vital Signs Temp 98.5 F 10/09/18 05:51 Pulse 74 10/09/18 10:00 Resp 20 10/09/18 05:51 BP 138/73 10/09/18 09:22 Pulse Ox 98 10/09/18 05:51 - Labs Result Diagrams: 10/08/18 14:34 10/08/18 14:34 Labs: Laboratory Results - last 24 hr 10/08/18 10/08/18 10/08/18 14:34 14:34 14:34 WBC 7.1 RBC 5.03 Hgb 15.6 Hct 46.1 MCV 91.7 D MCH 31.0 MCHC 33.8 RDW 12.4 Plt Count 243 MPV 9.6 Neut % (Auto) 62.9 Lymph % (Auto) 30.8 [place] % (Auto) 5.4 Eos % (Auto) 0.8 L Baso % (Auto) 0.1 Lymph # (Auto) 2.2 [place] # (Auto) 0.4 Eos # (Auto) 0.1 Baso # (Auto) 0.01 Absolute Neuts (auto) 4.44 Sodium 139 Potassium 4.1 Chloride 103 Carbon Dioxide 27 Anion Gap 12 BUN 20 Creatinine 0.9 Est GFR ( Amer) > 60 Est GFR (Non-Af Amer) > 60 Random Glucose 88 Calcium 9.4 Magnesium 2.1 Total Bilirubin 2.5 H AST 34 ALT 35 Alkaline Phosphatase 86 Lactate Dehydrogenase 360 Total Creatine Kinase 148 Troponin I < 0.01 Total Protein 7.5 Albumin 4.6 Globulin 2.9 Albumin/Globulin Ratio 1.6 Urine Color Yellow Urine Appearance Clear Urine pH 6.5 Ur Specific [place] 1.010 Urine Protein Negative Urine Glucose (UA) Negative Urine Ketones 15 H Urine Blood Negative Urine Nitrate Negative Urine Bilirubin Negative Urine Urobilinogen 0.2 Ur Leukocyte Esterase Negative 10/09/18 05:00 WBC RBC Hgb Hct MCV MCH MCHC RDW Plt Count MPV Neut % (Auto) Lymph % (Auto) [place] % (Auto) Eos % (Auto) Baso % (Auto) Lymph # (Auto) [place] # (Auto) Eos # (Auto) Baso # (Auto) Absolute Neuts (auto) Sodium Potassium Chloride Carbon Dioxide Anion Gap BUN Creatinine Est GFR ( Amer) Est GFR (Non-Af Amer) Random Glucose Calcium Magnesium Total Bilirubin AST ALT Alkaline Phosphatase Lactate Dehydrogenase Total Creatine Kinase Troponin I < 0.01 Total Protein Albumin Globulin Albumin/Globulin Ratio Urine Color Urine Appearance Urine pH Ur Specific [place] Urine Protein Urine Glucose (UA) Urine Ketones Urine Blood Urine Nitrate Urine Bilirubin Urine Urobilinogen Ur Leukocyte Esterase Assessment & Plan - Assessment and Plan (Free Text) Plan: Pt seen and examined by me. I have reviewed the note of the medical billing supervisor and I agree with it. I have discussed the assessment and plan with the resident. I have reviewed the medications and the last labs. Pt with chest pain after he took Cialis. Trop x2 is negative. Cardio will evaluate the pt. If cleared the pt can be discharged. Pt is on Zantac for GERD. He will continue with Cambalta for depression. He is on Ambien for insomnia. He will need echo for further evaluation.
[2018-10-09 09:23] VITALS: BP 138/73
[2018-10-09] MEDS: RANITIDINE 150 MG PO SCH (09:54)
--- NOTE | 2018-10-09 09:57 | CP.PCM.DIS ---
<Jenny Bernstein - Last Filed: 10/09/18 10:43> Provider - Provider Date of Admission: 10/08/18 17:19 Attending physician: William Arce MD Primary care physician: Dr. 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 Comment: chest pain Physician Instructions: Reason For Exam: eval Transition In Care/Readmission Reduction Routine Comment: chest pain Physician Instructions: Reason For Exam: eval Time Spent in preparation of Discharge (in minutes): 35 Hospital Course - Lab Results Lab Results: Most Recent Lab Values WBC 7.1 10^3/uL (4.5-11.0) 10/08/18 14:34 RBC 5.03 10^6/uL (3.5-6.1) 10/08/18 14:34 Hgb 15.6 g/dL (14.0-18.0) 10/08/18 14:34 Hct 46.1 % (42.0-52.0) 10/08/18 14:34 MCV 91.7 fl (80.0-105.0) D 10/08/18 14:34 MCH 31.0 pg (25.0-35.0) 10/08/18 14:34 MCHC 33.8 g/dl (31.0-37.0) 10/08/18 14:34 RDW 12.4 % (11.5-14.5) 10/08/18 14:34 Plt Count 243 10^3/uL (120.0-450.0) 10/08/18 14:34 MPV 9.6 fl (7.0-11.0) 10/08/18 14:34 Neut % (Auto) 62.9 % (50.0-68.0) 10/08/18 14:34 Lymph % (Auto) 30.8 % (22.0-35.0) 10/08/18 14:34 [place] % (Auto) 5.4 % (1.0-6.0) 10/08/18 14:34 Eos % (Auto) 0.8 % (1.5-5.0) L 10/08/18 14:34 Baso % (Auto) 0.1 % (0.0-3.0) 10/08/18 14:34 Lymph # (Auto) 2.2 (1.2-3.4) 10/08/18 14:34 [place] # (Auto) 0.4 (0.1-0.6) 10/08/18 14:34 Eos # (Auto) 0.1 (0.0-0.7) 10/08/18 14:34 Baso # (Auto) 0.01 K/mm3 (0.0-2.0) 10/08/18 14:34 Absolute Neuts (auto) 4.44 (1.4-6.5) 10/08/18 14:34 Sodium 139 mmol/L (132-148) 10/08/18 14:34 Potassium 4.1 mmol/L (3.6-5.0) 10/08/18 14:34 Chloride 103 mmol/L (98-107) 10/08/18 14:34 Carbon Dioxide 27 mmol/L (21-33) 10/08/18 14:34 Anion Gap 12 (10-20) 10/08/18 14:34 BUN 20 mg/dL (7-21) 10/08/18 14:34 Creatinine 0.9 mg/dl (0.8-1.5) 10/08/18 14:34 Est GFR ( Amer) > 60 10/08/18 14:34 Est GFR (Non-Af Amer) > 60 10/08/18 14:34 Random Glucose 88 mg/dL (70-110) 10/08/18 14:34 Calcium 9.4 mg/dL (8.4-10.5) 10/08/18 14:34 Magnesium 2.1 mg/dL (1.7-2.2) 10/08/18 14:34 Total Bilirubin 2.5 mg/dL (0.2-1.3) H 10/08/18 14:34 AST 34 U/L (17-59) 10/08/18 14:34 ALT 35 U/L (7-56) 10/08/18 14:34 Alkaline Phosphatase 86 U/L (38-126) 10/08/18 14:34 Lactate Dehydrogenase 360 U/L (333-699) 10/08/18 14:34 Total Creatine Kinase 148 U/L (35-230) 10/08/18 14:34 Troponin I < 0.01 ng/mL 10/09/18 05:00 Total Protein 7.5 g/dL (5.8-8.3) 10/08/18 14:34 Albumin 4.6 g/dL (3.0-4.8) 10/08/18 14:34 Globulin 2.9 gm/dL 10/08/18 14:34 Albumin/Globulin Ratio 1.6 (1.1-1.8) 10/08/18 14:34 Urine Color Yellow (YELLOW) 10/08/18 14:34 Urine Appearance Clear (CLEAR) 10/08/18 14:34 Urine pH 6.5 (4.7-8.0) 10/08/18 14:34 Ur Specific [place] 1.010 (1.005-1.035) 10/08/18 14:34 Urine Protein Negative mg/dL (<30 mg/dL) 10/08/18 14:34 Urine Glucose (UA) Negative mg/dL (NEGATIVE) 10/08/18 14:34 Urine Ketones 15 mg/dL (NEGATIVE) H 10/08/18 14:34 Urine Blood Negative (NEGATIVE) 10/08/18 14:34 Urine Nitrate Negative (NEGATIVE) 10/08/18 14:34 Urine Bilirubin Negative (NEGATIVE) 10/08/18 14:34 Urine Urobilinogen 0.2 E.U./dL (<1 E.U./dL) 10/08/18 14:34 Ur Leukocyte Esterase Negative [place]/uL (NEGATIVE) 10/08/18 14:34 - Hospital Course Hospital Course: Upon Admission As per HPI: "43yo male PMHx diverticulitis, nephrolithiasis, IBS, depression, anxiety, PUD, GERD, multiple nasal bone fractures presents to the ER complaining of chest tightness and nausea the night of admission. He reports she was engaging in sexual intercourse and at climax he felt a sudden chest tightness and was short of breath for some minutes. He denied radiation of the chest pain down his left arm or up his jaw and denied any diaphoresis/palpitations at the time of event. He reports he felt like it was a muscle spasm. Patient has anxiety for which he took Cialis prior to intercourse and was concerned it was related to his chest pain. he denied other complaints of fever, chills, headache, dizziness, cough, abd pain, nausea, vomiting, bowel/bladder complaints, pain/swelling in his legs bilaterally." Hospital Course Patient admitted to telemetry overnight for further management. Patient troponin was negative x 2 and EKG revealed NSR with HR 83bpm and no ST changes. Cardiology Dr. Vazquez on board. Patient had no acute events overnight and was comfortable this morning with no acute complaints of chest pain, palpitations, or dyspnea. Patient was restarted on home medications Klonopin for anxiety and Cymbalta for depression. He was continued on home Welchol for HLD and Zantac for his GERD. Patient was also continued on Florastor that he takes at home for IBS. He slept well overnight and was given home dose Ambien for insomnia. He tolerated his HHD. Cardiology evaluated patient. Patient clinically improved and was deemed medically optimized for discharge home with outpatient follow up. Discharge Instructions "You are being discharged from [facility]. Please resume all home medications as prescribed by your PMD. Please follow up with your Primary Care Doctor Dr. Urrutia within 7 days. Please also follow up with cardiology Dr. Vazquez within 7-10 days. You will need an outpatient stress test. If symptoms return please visit your nearest Emergency Room." Instructions discussed in detail with patient who verbalized understanding and agreement. Please note this is a discharge summary. For full hospital course please refer to EMR. Discharge Exam - Additional Findings Additional findings: - Constitutional Appears: Non-toxic, No Acute Distress - Head Exam Head Exam: ATRAUMATIC, NORMAL INSPECTION, NORMOCEPHALIC - Eye Exam Eye Exam: EOMI, Normal appearance, PERRL. absent: Conjunctival injection, Scleral icterus Pupil Exam: NORMAL ACCOMODATION, PERRL - ENT Exam ENT Exam: Mucous Membranes Moist - Neck Exam Neck exam: Positive for: Full Rom, Normal Inspection. Negative for: Lymphadenopathy - Respiratory Exam Respiratory Exam: Clear to Auscultation Bilateral, NORMAL BREATHING PATTERN. a bsent: Accessory Muscle Use, Rales, Rhonchi, Wheezes, Respiratory Distress - Cardiovascular Exam Cardiovascular Exam: REGULAR RHYTHM, RRR, +S1, +S2 - GI/Abdominal Exam GI & Abdominal Exam: Normal Bowel Sounds, Soft. absent: Firm, Guarding, Rigid, Tenderness - Extremities Exam Extremities exam: Positive for: normal capillary refill, normal inspection, pedal pulses present. Negative for: pedal edema - Back Exam Back exam: NORMAL INSPECTION. absent: rash noted - Neurological Exam Neurological exam: Alert, CN II-XII Intact, Oriented x3 - Psychiatric Exam Psychiatric exam: Anxious - Skin Skin Exam: Dry, Intact, Normal Color, Warm Discharge Plan - Follow Up Plan Condition: GOOD Disposition: HOME/ ROUTINE Additional Instructions: You are being discharged from [facility]. Please resume all home medications as prescribed by your PMD. Please follow up with your Primary Care Doctor Dr. Urrutia within 7 days. Please also follow up with cardiology Dr. Vazquez within 7-10 days. You will need an outpatient stress test. If symptoms return please visit your nearest Emergency Room. 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 Comment: chest pain Physician Instructions: Reason For Exam: eval Transition In Care/Readmission Reduction Routine Comment: chest pain Physician Instructions: Reason For Exam: eval Hospital Course - Lab Results Lab Results: Most Recent Lab Values WBC 7.1 10^3/uL (4.5-11.0) 10/08/18 14:34 RBC 5.03 10^6/uL (3.5-6.1) 10/08/18 14:34 Hgb 15.6 g/dL (14.0-18.0) 10/08/18 14:34 Hct 46.1 % (42.0-52.0) 10/08/18 14:34 MCV 91.7 fl (80.0-105.0) D 10/08/18 14:34 MCH 31.0 pg (25.0-35.0) 10/08/18 14:34 MCHC 33.8 g/dl (31.0-37.0) 10/08/18 14:34 RDW 12.4 % (11.5-14.5) 10/08/18 14:34 Plt Count 243 10^3/uL (120.0-450.0) 10/08/18 14:34 MPV 9.6 fl (7.0-11.0) 10/08/18 14:34 Neut % (Auto) 62.9 % (50.0-68.0) 10/08/18 14:34 Lymph % (Auto) 30.8 % (22.0-35.0) 10/08/18 14:34 [place] % (Auto) 5.4 % (1.0-6.0) 10/08/18 14:34 Eos % (Auto) 0.8 % (1.5-5.0) L 10/08/18 14:34 Baso % (Auto) 0.1 % (0.0-3.0) 10/08/18 14:34 Lymph # (Auto) 2.2 (1.2-3.4) 10/08/18 14:34 [place] # (Auto) 0.4 (0.1-0.6) 10/08/18 14:34 Eos # (Auto) 0.1 (0.0-0.7) 10/08/18 14:34 Baso # (Auto) 0.01 K/mm3 (0.0-2.0) 10/08/18 14:34 Absolute Neuts (auto) 4.44 (1.4-6.5) 10/08/18 14:34 Sodium 139 mmol/L (132-148) 10/08/18 14:34 Potassium 4.1 mmol/L (3.6-5.0) 10/08/18 14:34 Chloride 103 mmol/L (98-107) 10/08/18 14:34 Carbon Dioxide 27 mmol/L (21-33) 10/08/18 14:34 Anion Gap 12 (10-20) 10/08/18 14:34 BUN 20 mg/dL (7-21) 10/08/18 14:34 Creatinine 0.9 mg/dl (0.8-1.5) 10/08/18 14:34 Est GFR ( Amer) > 60 10/08/18 14:34 Est GFR (Non-Af Amer) > 60 10/08/18 14:34 Random Glucose 88 mg/dL (70-110) 10/08/18 14:34 Calcium 9.4 mg/dL (8.4-10.5) 10/08/18 14:34 Magnesium 2.1 mg/dL (1.7-2.2) 10/08/18 14:34 Total Bilirubin 2.5 mg/dL (0.2-1.3) H 10/08/18 14:34 AST 34 U/L (17-59) 10/08/18 14:34 ALT 35 U/L (7-56) 10/08/18 14:34 Alkaline Phosphatase 86 U/L (38-126) 10/08/18 14:34 Lactate Dehydrogenase 360 U/L (333-699) 10/08/18 14:34 Total Creatine Kinase 148 U/L (35-230) 10/08/18 14:34 Troponin I < 0.01 ng/mL 10/09/18 05:00 Total Protein 7.5 g/dL (5.8-8.3) 10/08/18 14:34 Albumin 4.6 g/dL (3.0-4.8) 10/08/18 14:34 Globulin 2.9 gm/dL 10/08/18 14:34 Albumin/Globulin Ratio 1.6 (1.1-1.8) 10/08/18 14:34 Urine Color Yellow (YELLOW) 10/08/18 14:34 Urine Appearance Clear (CLEAR) 10/08/18 14:34 Urine pH 6.5 (4.7-8.0) 10/08/18 14:34 Ur Specific [place] 1.010 (1.005-1.035) 10/08/18 14:34 Urine Protein Negative mg/dL (<30 mg/dL) 10/08/18 14:34 Urine Glucose (UA) Negative mg/dL (NEGATIVE) 10/08/18 14:34 Urine Ketones 15 mg/dL (NEGATIVE) H 10/08/18 14:34 Urine Blood Negative (NEGATIVE) 10/08/18 14:34 Urine Nitrate Negative (NEGATIVE) 10/08/18 14:34 Urine Bilirubin Negative (NEGATIVE) 10/08/18 14:34 Urine Urobilinogen 0.2 E.U./dL (<1 E.U./dL) 10/08/18 14:34 Ur Leukocyte Esterase Negative [place]ly/uL (NEGATIVE) 10/08/18 14:34 - Hospital Course Hospital Course: Pt seen and examined by me. I have reviewed the note of the medical dir and I agree with it. I have discussed the assessment and plan with the resident. I have reviewed the medications and the last labs. See H and P for further details.
[2018-10-09] MEDS ORDERED: [UNRECOGNIZED DRUG - OTHER] PO SCH (10:00)
[2018-10-09] MEDS ORDERED: [UNRECOGNIZED DRUG - OTHER] PO SCH ×2 (10:00)
[2018-10-09] MEDS ORDERED: SACCHAROMYCES BOULARDII 250 MG PO SCH ×2 (10:00)
[2018-10-09 11:01] VITALS: PULSE 74
--- NOTE | 2018-10-09 14:07 | CON ---
DATE OF CONSULTATION: 10/09/2018 REQUESTING PHYSICIAN: William Arce MD REASON FOR CONSULTATION: Chest pain. HISTORY: This is a 43-year-old man with a history of gastroesophageal reflux disease, anxiety disorder, who presented to the emergency room complaining of epigastric and retrosternal chest discomfort. He states that he was having sexual intercourse and developed chest tightness. He became anxious and concerned and presented to the emergency room. He denies any prior cardiac history. He had taken Cialis prior to his sexual encounter. He continues to have some chest soreness on the left side this morning. He denies any prior cardiac history. He denies any exertional symptoms. There is a family history of premature heart disease. PAST HISTORY: Notable for irritable bowel syndrome, diverticulitis, nephrolithiasis, nasal fracture with surgical repair, prior hernia repair. FAMILY HISTORY: His father had heart disease. His mother is in good health. SOCIAL HISTORY: He denies tobacco or alcohol use. He does smoke marijuana. 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 MEDICATIONS: Cymbalta, Florastor, Klonopin, Welchol and Zantac. He also uses Cialis as needed. ALLERGIES: NONE. REVIEW OF SYSTEMS: A 10-point review of systems is otherwise unremarkable. PHYSICAL EXAMINATION: GENERAL: He is an anxious-appearing middle-aged man. VITAL SIGNS: His blood pressure is 112/60 with a pulse of 56 and sinus. Respirations 14. He is afebrile. HEENT: Normocephalic, atraumatic. NECK: Supple. No JVD noted. CHEST: Clear to auscultation and percussion. HEART: PMI normal position. No pathological murmurs or gallops noted. ABDOMEN: Soft and nontender with normoactive bowel sounds. EXTREMITIES: No clubbing, cyanosis, edema. SKIN: Warm and dry. PSYCHIATRIC: Normal mood and affect other than mild anxiety. NEUROLOGIC: Alert and oriented x3. No gross motor or sensory deficits notable. DIAGNOSTIC DATA: White count 7.1, hemoglobin and hematocrit 15.6 and 46.1 with platelet count of 243,000. Potassium 4.1, BUN and creatinine 20 and 0.9. Two sets of cardiac enzymes are negative. Bilirubin is 2.5. Chest x-ray reveals normal cardiac silhouette with clear lung mari. Electrocardiogram reveals sinus rhythm with no acute abnormalities. IMPRESSION: 1. Chest pain, likely musculoskeletal in nature, doubt cardiac cause. 2. Rest of problems as noted. RECOMMENDATIONS: From a cardiac standpoint, he is stable for discharge home at this time. An outpatient exercise stress test can be planned for reassurance purposes. Hammad Vazquez MD
--- NOTE | 2018-10-09 21:33 | CARD ---
APPROVED REPORT Date of service: 10/08/2018 EKG Measurement Heart [id number] <Conclusion> Normal sinus rhythm Normal ECG
== END 2018-10-09 13:48 | disposition home or self-care (01) ==
LOC: ED 14:09 → ERH 17:19 → 2RNO 19:16
PROVIDERS: ADMIT Internal Medicine Nephrology; ATTEND Internal Medicine Nephrology
DX: R07.89 Other chest pain (principal); E78.5 Hyperlipidemia, unspecified; F12.90 Cannabis use, unspecified, uncomplicated; F32.89 Other specified depressive episodes; F41.9 Anxiety disorder, unspecified; G47.00 Insomnia, unspecified; K21.9 Gastro-esophageal reflux disease without esophagitis; K58.2 Mixed irritable bowel syndrome; Z87.442 Personal history of urinary calculi; Z87.11 Personal history of peptic ulcer disease; Z82.49 Family history of ischemic heart disease and other diseases of the circulatory system
CPT/HCPCS: 36415; 71045; 80053; 81003; 82550; 83615; 83735; 84484; 85025; 93005; 96360; 99285; G0378; J7030